=== PATIENT | female | born 1990 | race Hispanic/Latino ===

== ENCOUNTER 2020-02-02 19:32 | Emergency (ER) | payer SELFPAY ==
[~2020-02-02] VITALS: Ht 154.9 cm; Wt 77.1 kg
--- NOTE | 2020-02-02 22:19 | Diagnostic Imaging Report ---
EXAMINATION: CHEST SINGLE (NOT PORTABLE) INDICATION: Short of breath COMPARISON: None FINDINGS: TUBES and LINES: None. LUNGS: Normal lung volumes. Lungs are clear. No consolidations. PLEURA: No pleural effusion or pneumothorax. HEART AND MEDIASTINUM: The cardiomediastinal silhouette is unremarkable. BONES AND SOFT TISSUES: No acute osseous lesion. Soft tissues are unremarkable. UPPER ABDOMEN: No free air under the diaphragm. IMPRESSION: No acute thoracic radiographic abnormality. Signed by: Waqar Umanzor DO on 02/02/2020 10:16 PM
--- NOTE | 2020-02-02 22:29 | Emergency Department Note ---
History of Present Illnes History of Present Illness Chief Complaint: COVID PUI History of Present Illness This is a 29 year old female PRESENTS TO THE ER C/O SOB, GENERALIZED BODY ACHES, SORE THROAT, DRY COUGH, DIARRHEA, MIDSTERNAL CHEST PRESSURE, FEVER/CHILLS, NAUSEA AND DIZZINESS OSNET ON MONDAY . Historian: Patient Arrival Mode: Car Onset (how long ago): day(s) (3) Location: CHEST, BODY Quality: BODY ACHES, CHEST PAIN WITH COUGH Radiation: Reports non-radiation Severity: moderate Onset quality: gradual Duration (how long): day(s) (4) Progression: unchanged Chronicity: new Context: Denies recent illness, Denies recent surgery Relieving factors: none Exacerbating factors: other (DEEP BREATHS) Associated symptoms: Reports chest pain, Reports cough, Reports fever/chills, Reports nausea/vomiting Treatments prior to arrival: none Past Medical/Family History Physician Review I have reviewed the patient's past medical and family history. Any updates have been documented here. Past Medical History Recent Fever: Yes (SUBJECTIVE) Clinical Suspicion of Infectio: No New/Unexplained Change in Ment: No Other Medical History: SEIZURES WHEN 1 Y/O Past Surgical History: Other Surgery: C-SECTIONS X2 Social History Smoking Cessation: Never Smoker Alcohol Use: None Any Illegal Drug Use: No TB Exposure/Symptoms: No Physically hurt or threatened: No Other Last Tetanus: UTD Any Pre-Existing Lines (PICC,: No Is patient up to date on immun: Yes Last Flu: DENIES Last Pneumovax: DENIES Review of Systems Review of Systems Constitutional: Reports as per HPI EENTM: Reports no symptoms Cardiovascular: Reports as per HPI Respiratory: Reports as per HPI Gastrointestinal: Reports no symptoms Genitourinary: Reports no symptoms Musculoskeletal: Reports no symptoms Integumentary: Reports no symptoms Neurological: Reports no symptoms Psychological: Reports no symptoms Endocrine: Reports no symptoms Hematological/Lymphatic: Reports no symptoms Physical Exam Related Data Allergies: Coded Allergies: cinnamon (Verified Allergy, Intermediate, HIVES, 02/02/20) Triage Vital Signs Vital Signs Date Time Temp Pulse Resp B/P (MAP) Pulse Ox O2 Delivery O2 Flow Rate FiO2 02/02/20 19:48 97.9 96 20 140/86 100 Vital signs reviewed: Yes Physical Exam CONSTITUTIONAL Constitutional: Present well-developed, Present well-nourished HENT HENT: Present normocephalic, Present atraumatic, Present oropharynx clear/moist, Present nose normal HENT L/R: Present left ext ear normal, Present right ext ear normal EYES Eyes: Reports PERRL, Reports conjunctivae normal NECK Neck: Present ROM normal PULMONARY Pulmonary: Present effort normal, Present breath sounds normal CARDIOVASCULAR Cardiovascular: Present regular rhythm, Present heart sounds normal, Present capillary refill normal, Present normal rate GASTROINTESTINAL Abdominal: Present soft, Present nontender, Present bowel sounds normal GENITOURINARY Genitourinary: Present exam deferred SKIN Skin: Present warm, Present dry MUSCULOSKELETAL Musculoskeletal: Present ROM normal NEUROLOGICAL Neurological: Present alert, Present oriented x 3, Present no gross motor or sensory deficits PSYCHOLOGICAL Psychological: Present mood/affect normal, Present judgement normal Results Imaging Imaging results reviewed: Yes Impressions Procedure: [id number] DX/CHEST SINGLE (NOT PORTABLE) Exam Date: 02/02/20 Exam Time: 2107 REPORT STATUS: Signed EXAMINATION: CHEST SINGLE (NOT PORTABLE) INDICATION: Short of breath COMPARISON: None FINDINGS: TUBES and LINES: None. LUNGS: Normal lung volumes. Lungs are clear. No consolidations. PLEURA: No pleural effusion or pneumothorax. HEART AND MEDIASTINUM: The cardiomediastinal silhouette is unremarkable. BONES AND SOFT TISSUES: No acute osseous lesion. Soft tissues are unremarkable. UPPER ABDOMEN: No free air under the diaphragm. IMPRESSION: No acute thoracic radiographic abnormality. Signed by: Eb Umanzor DO on 02/02/2020 10:16 PM Dictated By: EB UMANZOR DO 15 Transcribed By: TYRELL on 02/02/202215 Procedures 12 Lead ECG Interpretation ECG Interpretation : ECG: ECG 1 [employer]: Interpreted by ED physician Date: Feb 02, 2020 Time: 22:33 Rhythm: sinus rhythm Rate: normal BPM: 65 QRS axis: normal ST segments normal: Yes T waves normal: Yes Clinical Impression: non-specific ECG Additional Comments LOW VOLTAGE QRS Assessment & Plan Medical Decision Making MDM PT WITH VIRAL SYNDROME SYMPTOMS AND CHEST PAIN WITH COUGH AND INSPIRATION, HAD COVID 19 TEST YESTERDAY AND IS AWAITING RESULTS. CXR , EKG ORDERED TO EVAL FOR PNEUMONIA, MYOCARDIAL ISCHEMIA. Assessment & Plan Final Impression: (1) Viral syndrome (2) Chest wall pain Depart Disposition: HOME, SELF-CARE Last Vital Signs Date Time Temp Pulse Resp B/P (MAP) Pulse Ox O2 Delivery O2 Flow Rate FiO2 02/02/20 21:53 72 20 106/79 100 02/02/20 19:48 97.9 RO KING MD Feb 02, 2020 22:29
== END 2020-02-02 23:54 | disposition home or self-care (01) ==
LOC: ER 19:32
DX: R50.9 Fever, unspecified (principal); R05 Cough; R07.89 Other chest pain; B34.9 Viral infection, unspecified
CPT/HCPCS: 71045; 93005; 99283